=== PATIENT | male | born 1950 | race Asian ===

== ENCOUNTER 2017-03-19 18:51 | Emergency (ER) | payer OTHER ==
--- NOTE | 2017-03-19 19:12 | PDOC ---
Rapid Medical Evaluation Chief Complaint: Blood Pressure Problem Time Seen by Provider: 03/19/17 19:12 Medical Evaluation: 03/19/17 19:13 Pt presents with complaint of : sent by Dr. afua Howe/dixon at 206/86. patient took Lopressor 25mg and lasix 40mg at 6.30pm. patient remains asymptomatic. hx htn, hypercholestremia, diabetes, cardiac stent On brief exam:VSS, LCTA I have ordered the following: no labs ordered. Pt will go to the Emergency Dept for further management
[2017-03-19 19:18] VITALS: TEMP 98.5; BMI 34.0
--- NOTE | 2017-03-19 19:31 | PDOC ---
History of Present Illness - History of Present Illness Initial Comments: 03/19/17 22:53 Mr. Watkins is a 66 yo male with pmh of HTN, DM, HLD, CKD Stage, and CAD who presents on advice of PCP as his blood pressure was 190 systolic earlier today. Mr. Watkins currently has no complaints but is worried about his BP. Patient's also expressed that his baseline Creatinine is approximately 2.5 and that they would like his kidney function checked. The patient denies chest pain, shortness of breath, headache and dizziness. Denies fever, chills, nausea, vomit, diarrhea and constipation. Denies dysuria, frequency, urgency and hematuria. Allergies: NKDA <Burt Mcdaniel - Last Filed: 03/19/17 23:55> <Joshua Garcia - Last Filed: 03/20/17 01:27> - General Chief Complaint: Blood Pressure Problem Stated Complaint: BLOOD PRESSURE Time Seen by Provider: 03/19/17 19:12 Past History - Past Medical History COPD: No HTN: Yes - Suicide/Smoking/Psychosocial Hx Smoking History: Never smoked Information on smoking cessation initiated: No Hx Alcohol Use: No Drug/Substance Use Hx: No <Burt Mcdaniel - Last Filed: 03/19/17 23:55> <Joshua Garcia - Last Filed: 03/20/17 01:27> - Past Medical History Allergies/Adverse Reactions: Allergies Allergy/AdvReac Type Severity Reaction Status Date / Time No Known Allergies Allergy Verified 03/19/17 21:19 Home Medications: Ambulatory Orders Atorvastatin Ca [Lipitor] 20 mg PO DAILY 03/19/17 Famotidine [Pepcid -] 20 mg PO DAILY 03/19/17 Furosemide [Lasix] 80 mg PO AM 03/19/17 Insulin Degludec [Tresiba Flextouch U-100] 60 unit SQ HS 03/19/17 Insulin Lispro [Humalog] 0 unit SQ ACHS 03/19/17 Metoprolol Tartrate [Lopressor] 50 mg PO DAILY 03/19/17 Nifedipine ER [Procardia Xl -] 60 mg PO DAILY 03/19/17 Telmisartan/Hydrochlorothiazid [Telmisartan-Hctz 80-25 mg Tab] 1 each PO AM Review of Systems - Review of Systems Comments:: 03/19/17 22:56 GENERAL/CONSTITUTIONAL: No fever or chills. No weakness. HEAD, EYES, EARS, NOSE AND THROAT: No change in vision. No ear pain or discharge. No sore throat. CARDIOVASCULAR: No chest pain or shortness of breath RESPIRATORY: No cough, wheezing, or hemoptysis. GASTROINTESTINAL: No nausea, vomiting, diarrhea or constipation. GENITOURINARY: No dysuria, frequency, or change in urination. MUSCULOSKELETAL: No joint or muscle swelling or pain. No neck or back pain. SKIN: No rash NEUROLOGIC: No headache, vertigo, loss of consciousness, or change in strength/ sensation. ENDOCRINE: No increased thirst. No abnormal weight change HEMATOLOGIC/LYMPHATIC: No anemia, easy bleeding, or history of blood clots. ALLERGIC/IMMUNOLOGIC: No hives or skin allergy. <Burt Mcdaniel - Last Filed: 03/19/17 23:55> *Physical Exam - Vital Signs Last Vital Signs Temp Pulse Resp BP Pulse Ox 98.5 F 91 H 18 202/90 98 03/19/17 19:13 03/19/17 19:13 03/19/17 19:13 03/19/17 19:13 03/19/17 19:13 - Physical Exam Comments: 03/19/17 22:56 GENERAL: Awake, alert, and fully oriented, in no acute distress HEAD: No signs of trauma, normocephalic, atraumatic EYES: PERRLA, EOMI, sclera anicteric, conjunctiva clear ENT: Auricles normal inspection, hearing grossly normal, nares patent, oropharynx clear without exudates. Moist mucosa NECK: Normal ROM, supple, no lymphadenopathy, JVD, or masses LUNGS: No distress, speaks full sentences, clear to auscultation bilaterally HEART: Regular rate and rhythm, normal S1 and S2, no murmurs, rubs or gallops, peripheral pulses normal and equal bilaterally. ABDOMEN: Soft, nontender, normoactive bowel sounds. No guarding, no rebound. No masses EXTREMITIES: Normal inspection, Normal range of motion, no edema. No clubbing or cyanosis. NEUROLOGICAL: Cranial nerves II through XII grossly intact. Normal speech, normal gait, no focal sensorimotor deficits SKIN: Warm, Dry, normal turgor, no rashes or lesions noted. <Burt Mcdaniel - Last Filed: 03/19/17 23:55> - Vital Signs Last Vital Signs Temp Pulse Resp BP Pulse Ox 98.5 F 72 18 137/79 100 03/19/17 19:13 03/19/17 22:52 03/19/17 22:52 03/20/17 01:24 03/19/17 22:52 <Joshua Garcia - Last Filed: 03/20/17 01:27> ED Treatment Course - LABORATORY CBC & Chemistry Diagram: 03/19/17 21:30 03/19/17 21:30 <Burt Mcdaniel - Last Filed: 03/19/17 23:55> - LABORATORY CBC & Chemistry Diagram: 03/19/17 21:30 03/19/17 21:30 - ADDITIONAL ORDERS Additional order review: Laboratory Results 03/19/17 21:30 Sodium 134 L Potassium 3.7 Chloride 97 L Carbon Dioxide 30 Anion Gap 7 L BUN 31 H Creatinine 2.5 H Creat Clearance w eGFR 25.89 Random Glucose 239 H Calcium 8.4 L Total Bilirubin 0.4 AST 28 ALT 39 Alkaline Phosphatase 131 H Creatine Kinase 206 Creatine Kinase Index 0.7 CK-MB (CK-2) 1.600 Troponin I 0.04 Total Protein 6.9 Albumin 3.2 L 03/19/17 21:30 RBC 4.31 MCV 87.4 MCHC 33.4 RDW 12.8 MPV 7.3 L Neutrophils % 69.3 Lymphocytes % 17.7 Monocytes % 10.1 Eosinophils % 2.3 Basophils % 0.6 - Medications Given in the ED: ED Medications Discontinued Medications Generic Name Dose Route Start Last Admin Trade Name Sharon PRN Reason Stop Dose Admin Labetalol HCl 20 mg 03/19/17 23:02 03/19/17 23:16 Normodyne Injection - IVPUSH 03/19/17 23:03 20 mg ONCE ONE Administration Labetalol HCl 100 mg 03/19/17 23:20 03/19/17 23:34 Normodyne - PO 03/19/17 23:21 100 mg ONCE ONE Administration Metoprolol Tartrate 25 mg 03/19/17 21:16 03/19/17 21:37 Lopressor - PO 03/19/17 21:17 25 mg ONCE ONE Administration <Joshua Garcia - Last Filed: 03/20/17 01:27> Medical Decision Making - Medical Decision Making 03/19/17 23:00 Unable to bring down patient's BP despite patient taking extra 40 hydralazine and 25 metoprolol per PCP's recommendations and an additional 25 metoprolol in ED. BP had initially dropped to 170's systolic but has now risen to [address] Agarwal (PCP) regarding beginning IV medications / admission for cardiology workup. Stefano agrees and would like pt admitted under hospitalist. Will comply. 03/19/17 23:24 Discussed patient with hospitalist. Given asymptomatic nature of hypertension, hospitalist would like ED obs short stay for now with admission if no change after 8 hours or if he becomes symptomatic. Will enter ED short stay. 03/19/17 23:55 Patient signed out to Dr. Washington. <Burt Mcdaniel - Last Filed: 03/19/17 23:55> *DC/Admit/Observation/Transfer - Discharge Dispostion Admit: Yes <Burt Mcdaniel - Last Filed: 03/19/17 23:55> <Joshua Garcia - Last Filed: 03/20/17 01:27> Diagnosis at time of Disposition: Hypertension Qualifiers: Hypertension type: unspecified Qualified Code(s): I10 - Essential (primary) hypertension - Discharge Dispostion Disposition: HOME - Referrals Referrals: Evangelista Agarwal MD [Primary Care Provider] - - Patient Instructions Printed Discharge Instructions: DI for High Blood Pressure, How to Monitor Your Blood Pressure at Home Additional Instructions: You must follow up with Dr. Agarwal tomorrow to have your blood pressure medications adjusted. Uncontrolled blood pressure can lead to severe heart disease, disability, or even . You were given an additional dose of metoprolol 25mg, as well as labetalol 100mg in the ER tonight, which caused your blood pressure to return to normal. If you experience chest pain, shortness of breath, headache, dizziness, or any other concerning symptoms, return to the ER immediately.
[2017-03-19] MEDS ORDERED: METOPROLOL TARTRATE 25 MG TABLET (FP) PO ONE (21:16)
[2017-03-19] MEDS ORDERED: METOPROLOL TARTRATE 25 MG TABLET (FP) ONE (21:33)
--- NOTE | 2017-03-19 21:33 | PDOC ---
Attending Attestation - Resident Resident Name: Burt Mcdaniel - ED Attending Attestation I have performed the following: I have examined & evaluated the patient, The case was reviewed & discussed with the resident, I agree w/resident's findings & plan, Exceptions are as noted - HPI HPI: 03/19/17 21:28 The patient is a 66 year old male, with a significant past medical history of hypertension, hyperlipidemia, diabetes, CAD, and CKD, who presents to the emergency department with elevated BP. Pt states that he has not checked it in a few days and when he went to his appointment at ENT clinic, his BP was found to be 199. Pt reports compliance with his meds, which include lasix 80mg, metoprolol 50mg, nifedipine 90mg, and telmasartan. He denies any complaints at this time. No CP/SOB/URBAN/N/V/abdominal pain. Pt states that he called his PMD, who instructed him to take an extra 25mg of metoprolol and lasix 40mg, which he took at 6:30. Pt states his baseline BP is around 160 systolic. Has not had any recent changes in his meds. - Physicial Exam PE: 03/19/17 21:32 "GENERAL: Awake, alert, and fully oriented, in no acute distress HEAD: No signs of trauma EYES: PERRLA, EOMI, sclera anicteric, conjunctiva clear ENT: Auricles normal inspection, hearing grossly normal, nares patent, oropharynx clear without exudates. Moist mucosa NECK: Nontender, no stepoffs, Normal ROM, supple, no lymphadenopathy, JVD, or masses LUNGS: Breath sounds equal, clear to auscultation bilaterally. No wheezes, and no crackles HEART: Regular rate and rhythm, normal S1 and S2, no murmurs, rubs or gallops ABDOMEN: Soft, nontender, normoactive bowel sounds. No guarding, no rebound. No masses EXTREMITIES: Normal range of motion, no edema. No clubbing or cyanosis. No cords, erythema, or tenderness NEUROLOGICAL: Cranial nerves II through XII intact. 5/5 strength and sensation in all extremities, Normal speech, normal gait SKIN: Warm, Dry, normal turgor, no rashes or lesions noted. " - Medical Decision Making 03/19/17 21:37 66 M with elevated BP. Pt with no other complaints. After additional metoprolol 25mg and lasix 40mg, pt's BP has improved from 200 to 180 systolic. Given significant comorbidities, will check basic labs and EKG despite lack of symptoms. Will also administer additional 25mg metoprolol to complete home dose of 50mg. - CBC, CMP - EKG - Metoprolol 25mg - Reassess 03/20/17 01:24 CBC,CMP WBC 9.8 K/mm3 (4.0-10.0) 03/19/17 21:30 RBC 4.31 M/mm3 (4.00-5.60) 03/19/17 21:30 Hgb 12.6 GM/dL (11.7-16.9) 03/19/17: Hct 37.7 % (35.4-49) 03/19/17 21: MCV 87.4 fl (80-96) 03/19/17 21: MCH 29.2 pg (25.7-33.7) 03/19/17: MCHC 33.4 g/dl (32.0-35.9) 03/19/17 21:30 RDW 12.8 % (11.9-15.9) 03/19/17: Plt Count 248 K/MM3 (134-434) 03/19/17 21: MPV 7.3 fl (7.5-11.1) L 03/19/17 21: Neutrophils % 69.3 % (42.8-82.8) 03/19/17 21: Lymphocytes % 17.7 % (8-40) 03/19/17: Monocytes % 10.1 % (3.8-10.2) 03/19/17 21: Eosinophils % 2.3 % (0-4.5) 03/19/17 21: Basophils % 0.6 % (0-2.0) 03/19/17 21:30 Sodium 134 mmol/L (136-145) L 03/19/17 21:30 Potassium 3.7 mmol/L (3.5-5.1) 03/19/17 21:30 Chloride 97 mmol/L (98-107) L 03/19/17 21: Carbon Dioxide 30 mmol/L (21-32) 03/19/17 21:30 Anion Gap 7 (8-16) L 03/19/17 21:30 BUN 31 mg/dL (7-18) H 03/19/17 21:30 Creatinine 2.5 mg/dL (0.7-1.3) H 03/19/17 21:30 Creat Clearance w eGFR 25.89 (>60) 03/19/17 21:30 Random Glucose 239 mg/dL (74-106) H 03/19/17 21:30 Calcium 8.4 mg/dL (8.5-10.1) L 03/19/17 21:30 Total Bilirubin 0.4 mg/dL (0.2-1.0) 03/19/17 21:30 AST 28 U/L (15-37) 03/19/17 21:30 ALT 39 U/L (12-78) 03/19/17 21:30 Alkaline Phosphatase 131 U/L (45-117) H 03/19/17 21: Creatine Kinase 206 IU/L (39-308) 03/19/17 21:30 Creatine Kinase Index 0.7 % (0.0-5.0) 03/19/17 21:30 CK-MB (CK-2) 1.600 ng/mL (0.5-3.6) 03/19/17 21:30 Troponin I 0.04 ng/ml (0.00-0.05) 03/19/17 21:30 Total Protein 6.9 g/dl (6.4-8.2) 03/19/17 21:30 Albumin 3.2 g/dl (3.4-5.0) L 03/19/17 21:[address] Agarwal, who reports that pt's Cr is at baseline today ( 2.5). Pt with no other signs of end-organ damage. Pt given additional Labetalol 100mg PO. Repeat BP now 130s systolic. Pt continues to be asymptomatic. Pt well appearing, vitals now normal. Clinically stable for DC. Heart Score/ECG Review - ECG Impressions Comment:: 03/19/17 21:40 NSR, no RUBA/STDs, T wave flattening in V6, intervals wnl
[2017-03-19 21:35] LABS: BASOPHIL 0.6 % (0-2.0); EOSINOPHIL 2.3 % (0-4.5); MCH 29.2 pg (25.7-33.7); MCHC 33.4 g/dl (32.0-35.9); MEAN CELL VOLUME 87.4 fl (80-96); MEAN PLT VOLUME 7.3 fl (7.5-11.1); NEUTROPHILS 69.3 % (42.8-82.8); PLATELET COUNT 248 K/MM3 (134-434); RDW 12.8 % (11.9-15.9); WHITE BLOOD COUNT 9.8 K/mm3 (4.0-10.0)
[2017-03-19 22:15] LABS: ALBUMIN 3.2 g/dl (3.4-5.0); ANION GAP 7 (8-16); CALCIUM 8.4 mg/dL (8.5-10.1); CO2 30 mmol/L (21-32); CREATININE 2.5 mg/dL (0.7-1.3); GLUCOSE,RANDOM 239 mg/dL (74-106); SGOT/AST 28 U/L (15-37)
[2017-03-19 22:18] LABS: ALK PHOS 131 U/L (45-117); BILIRUBIN,TOTAL 0.4 mg/dL (0.2-1.0); CPK 206 IU/L (39-308); SGPT/ALT 39 U/L (12-78); TOT PROT 6.9 g/dl (6.4-8.2); TROPONIN I 0.04 ng/ml (0.00-0.05)
[2017-03-19 22:53] VITALS: PULSE 72
[2017-03-19] MEDS ORDERED: LABETALOL HCL 5 MG/1 ML (100MG/20 ML VIAL) IVPUSH ONE (23:02)
[2017-03-19] MEDS ORDERED: LABETALOL HCL 100 MG TABLET (FP) PO ONE (23:20)
[2017-03-19] MEDS ORDERED: LABETALOL HCL 100 MG TABLET (FP) ONE (23:32)
[2017-03-20 01:25] VITALS: BP 137/79
--- NOTE | 2017-03-20 10:05 | EKG ---
Test Reason : Blood Pressure : / mmHG Vent. Rate : 080 BPM Atrial Rate : 080 BPM P-R Int : 192 ms QRS Dur : 116 ms QT Int : 368 ms P-R-T Axes : 038 -47 077 degrees QTc Int : 424 ms NORMAL SINUS RHYTHM LEFT ANTERIOR FASCICULAR BLOCK NONSPECIFIC T WAVE ABNORMALITY ABNORMAL ECG NO PREVIOUS ECGS AVAILABLE Confirmed by ETHAN ARTEAGA MD ([id number]) on 03/20/2017 10:05:29 AM Referred By: Confirmed By:ETHAN ARTEAGA MD
== END 2017-03-20 01:45 | disposition home or self-care (01) ==
LOC: JER 18:51
PROC: 3E033GC Introduction of Other Therapeutic Substance into Peripheral Vein, Percutaneous Approach (ICD-10-PCS; principal; 2017-03-19)
DX: I25.10 Atherosclerotic heart disease of native coronary artery without angina pectoris (principal); I13.10 Hypertensive heart and chronic kidney disease without heart failure, with stage 1 through stage 4 chronic kidney disease, or unspecified chronic kidney disease; N18.9 Chronic kidney disease, unspecified; Z95.5 Presence of coronary angioplasty implant and graft; E11.9 Type 2 diabetes mellitus without complications; Z79.4 Long term (current) use of insulin
CPT/HCPCS: 36415; 80053; 82550; 82553; 84484; 85025; 93005; 93010; 99283-25

== ENCOUNTER 2022-12-19 14:45 | Inpatient (IN) | payer OTHER ==
[2022-12-19 17:29] LABS: BASO % 0.9 % (0-2.0); EOS % 5.2 % (0-4.5); HEMATOCRIT 36.5 % (35.4-49); LYMPH % 9.4 % (8-40); MCHC 32.8 g/dl (32.0-35.9); MEAN CELL VOLUME 88.4 fl (80-96); MEAN PLT VOLUME 7.6 fl (7.5-11.1); MONO % 6.3 % (3.8-10.2); NEUT % 78.2 % (42.8-82.8); PLATELET COUNT 269 10^3/uL (134-434); RBC 4.13 M/mm3 (4.00-5.60); VENOUS BASE EXCESS -4.4 mmol/L (-2-2); VENOUS O2 SATURATION 71.5 % (70-80); VENOUS PCO2 49.1 mmHg (38-52); VENOUS PH 7.281 (7.310-7.410); WHITE BLOOD COUNT 10.9 K/mm3 (4.0-10.0)
[2022-12-19 17:35] LABS: INR 0.96 (0.83-1.09); PROTHROMBIN TIME (PATIENT) 11.1 SEC (9.7-13.0)
[2022-12-19 17:38] LABS: ACTIVATED PTT 33.2 SECONDS (25.2-36.5)
[2022-12-19 17:52] LABS: CHLORIDE 107 mmol/L (98-107); SODIUM 136 mmol/L (136-145)
[2022-12-19 17:55] LABS: ALBUMIN 2.7 g/dl (3.4-5.0); BLOOD UREA NITROGEN 33.2 mg/dL (7-18); CO2 25 mmol/L (21-32); GLUCOSE,RANDOM 99 mg/dL (74-106)
[2022-12-19 17:56] LABS: EPI CELLS 8 /uL (0-25.1); HYALINE CASTS 0 /uL (0-3.1); URINE APPEARANCE CLEAR; URINE BACTERIA 3 /uL (0-1359); URINE BILIRUBIN NEGATIVE (NEGATIVE); URINE COLOR YELLOW; URINE GLUCOSE (UA) NEGATIVE (NEGATIVE); URINE KETONE NEGATIVE (NEGATIVE); URINE LEUK ESTERASE NEGATIVE (NEGATIVE); URINE NITRITE NEGATIVE (NEGATIVE); URINE PROTEIN 3+ (NEGATIVE); URINE RBC 10 /uL (0-23.9); URINE UROBILINOGEN 0.2 mg/dL (0.2-1.0); URINE WBC 3 /uL (0-25.8)
[2022-12-19 17:58] LABS: SGOT/AST 57 U/L (15-37); SGPT/ALT 22 U/L (13-61)
[2022-12-19 17:59] LABS: BILIRUBIN,TOTAL 0.3 mg/dL (0.2-1); TOT PROT 6.8 g/dl (6.4-8.2)
[2022-12-19 18:01] LABS: ALK PHOS 182 U/L (45-117)
[2022-12-19 18:03] LABS: N-TERMINAL BNP 5762.8 pg/ml (5-125)
[2022-12-19 18:05] LABS: ANION GAP 5 MMOL/L (8-16); CALCIUM 8.2 mg/dL (8.5-10.1); POTASSIUM 6.2 mmol/L (3.5-5.1)
[2022-12-19] MEDS ORDERED: FUROSEMIDE 40 MG/4 ML INJECTABLE VIAL IVPUSH ONE (18:42)
[2022-12-19] MEDS ORDERED: FUROSEMIDE 40 MG/4 ML INJECTABLE VIAL ONE (18:53)
[2022-12-19 19:20] LABS: POTASSIUM 4.4 mmol/L (3.5-5.1)
[2022-12-19 19:24] LABS: BLOOD UREA NITROGEN 33.4 mg/dL (7-18); MAGNESIUM 1.9 mg/dL (1.8-2.4)
[2022-12-19 19:27] LABS: CREATININE 2.9 mg/dL (0.55-1.3)
[2022-12-19 19:37] LABS: CALCIUM 8.1 mg/dL (8.5-10.1)
[2022-12-19] MEDS ORDERED: hydrALAZINE HCL 20 MG/ML VIAL IVPUSH ONE (22:04)
[2022-12-19] MEDS ORDERED: HEPARIN NA (PORCINE) 5,000 UNITS/ML 1ML VIAL ONE (22:10)
[2022-12-19] MEDS ORDERED: hydrALAZINE HCL 20 MG/ML VIAL ONE (22:10)
[2022-12-19] MEDS: INSULIN SLIDING SCALE (NOVOLOG) 1 VIAL SQ SCH (22:21)
[2022-12-19] MEDS ORDERED: DEXTROSE 50%-WATER 25 GM/50 ML DISP.SYRIN ONE (22:21)
[2022-12-19] MEDS ORDERED: DEXTROSE 50%-WATER - 25 GM/50 ML VIAL IVPUSH ONE (22:23)
[2022-12-19] MEDS: HEPARIN NA (PORCINE) 5,000 UNITS/ML 1ML VIAL SQ SCH (22:32)
[2022-12-20] MEDS ORDERED: hydrALAZINE HCL 20 MG/ML VIAL IVPUSH ONE ×2 (00:30→22:29)
[2022-12-20] MEDS ORDERED: NIFEdipine E.R 60 MG TABLET PO ONE (02:42)
[2022-12-20] MEDS ORDERED: FUROSEMIDE 40 MG/4 ML INJECTABLE VIAL IVPUSH ONE (03:00)
[2022-12-20] MEDS: HEPARIN NA (PORCINE) 5,000 UNITS/ML 1ML VIAL SQ SCH ×3 (06:44→22:55)
[2022-12-20 07:17] LABS: HEMATOCRIT 37.4 % (35.4-49); HEMOGLOBIN 11.6 GM/dL (11.7-16.9); MCH 28.4 pg (25.7-33.7); MCHC 31.1 g/dl (32.0-35.9); MEAN CELL VOLUME 91.4 fl (80-96); PLATELET COUNT 246 10^3/uL (134-434); RBC 4.09 M/mm3 (4.00-5.60); RDW 13.9 % (11.9-15.9); WHITE BLOOD COUNT 9.6 K/mm3 (4.0-10.0)
[2022-12-20 07:39] LABS: POTASSIUM 4.4 mmol/L (3.5-5.1)
[2022-12-20 07:48] LABS: ALBUMIN 2.5 g/dl (3.4-5.0); BLOOD UREA NITROGEN 37.7 mg/dL (7-18); CALCIUM 8.2 mg/dL (8.5-10.1); MAGNESIUM 1.9 mg/dL (1.8-2.4)
[2022-12-20 07:51] LABS: CREATININE 3.1 mg/dL (0.55-1.3); PHOSPHOROUS 5.3 mg/dL (2.5-4.9)
[2022-12-20 07:52] LABS: BILIRUBIN,TOTAL 0.2 mg/dL (0.2-1); TOT PROT 5.9 g/dl (6.4-8.2)
[2022-12-20] MEDS: INSULIN SLIDING SCALE (NOVOLOG) 1 VIAL SQ SCH ×4 (08:00→22:55)
[2022-12-20] MEDS ORDERED: INSULIN (NOVOLOG) ASPART 100 UNITS/ML 10ML VIAL ONE ×2 (08:18→16:15)
[2022-12-20] MEDS: ASPIRIN 81 MG CHEWABLE TABLETS PO SCH (09:59)
[2022-12-20] MEDS ORDERED: NIFEdipine E.R 60 MG TABLET PO SCH (10:00)
[2022-12-20] MEDS ORDERED: LOSARTAN POTASSIUM 25 MG TABLET PO SCH (11:15)
[2022-12-20] MEDS ORDERED: NIFEdipine E.R. 30 MG TABLET PO ONE ×2 (13:15→15:30)
[2022-12-20] MEDS ORDERED: LORazepam 0.5 MG TABLET PO PRN (14:43)
[2022-12-20] MEDS ORDERED: INSULIN (LEVEMIR) 100 UNITS/ML UNITS SQ SCH (22:00)
[2022-12-20] MEDS: ATORVASTATIN CA 20 MG TABLET (FP) PO SCH (22:55)
[2022-12-20] MEDS: DONEPEZIL HCL 5 MG TABLET (FP) PO SCH (22:55)
[2022-12-21] MEDS: INSULIN SLIDING SCALE (NOVOLOG) 1 VIAL SQ SCH ×4 (06:04→22:26)
[2022-12-21] MEDS: HEPARIN NA (PORCINE) 5,000 UNITS/ML 1ML VIAL SQ SCH ×3 (07:09→22:28)
[2022-12-21] MEDS: INSULIN (LEVEMIR) 100 UNITS/ML UNITS SQ SCH (07:09)
[2022-12-21 08:14] LABS: HEMATOCRIT 35.1 % (35.4-49); MCH 28.3 pg (25.7-33.7); MCHC 31.3 g/dl (32.0-35.9); MEAN CELL VOLUME 90.3 fl (80-96); MEAN PLT VOLUME 8.3 fl (7.5-11.1); PLATELET COUNT 257 10^3/uL (134-434); RBC 3.89 M/mm3 (4.00-5.60); RDW 13.8 % (11.9-15.9); WHITE BLOOD COUNT 10.1 K/mm3 (4.0-10.0)
[2022-12-21 08:21] LABS: POTASSIUM 4.6 mmol/L (3.5-5.1)
[2022-12-21 08:25] LABS: BLOOD UREA NITROGEN 46.5 mg/dL (7-18); MAGNESIUM 2.1 mg/dL (1.8-2.4)
[2022-12-21 08:26] LABS: ALBUMIN 2.4 g/dl (3.4-5.0)
[2022-12-21 08:28] LABS: CREATININE 3.7 mg/dL (0.55-1.3); PHOSPHOROUS 4.8 mg/dL (2.5-4.9)
[2022-12-21 08:30] LABS: BILIRUBIN,TOTAL 0.3 mg/dL (0.2-1); TOT PROT 5.6 g/dl (6.4-8.2)
[2022-12-21] MEDS ORDERED: FUROSEMIDE 40 MG/4 ML INJECTABLE VIAL IVPUSH SCH ×2 (10:00)
[2022-12-21] MEDS: NIFEdipine E.R. 90 MG TABLET PO SCH (10:37)
[2022-12-21] MEDS: ASPIRIN 81 MG CHEWABLE TABLETS PO SCH (10:37)
[2022-12-21] MEDS: NITROGLYCERIN 2% OINTMENT - 1GM PACKET TD SCH ×3 (12:08→23:21)
[2022-12-21 13:12] VITALS: BMI 38.4
[2022-12-21] MEDS: FUROSEMIDE 40 MG/4 ML INJECTABLE VIAL IVPUSH SCH (14:02)
[2022-12-21] MEDS ORDERED: INSULIN (NOVOLOG) ASPART 100 UNITS/ML 10ML VIAL ONE (17:18)
[2022-12-21] MEDS: DONEPEZIL HCL 5 MG TABLET (FP) PO SCH (22:28)
[2022-12-21] MEDS: ATORVASTATIN CA 20 MG TABLET (FP) PO SCH (22:28)
[2022-12-22] MEDS: INSULIN SLIDING SCALE (NOVOLOG) 1 VIAL SQ SCH ×4 (06:18→21:29)
[2022-12-22] MEDS: INSULIN (LEVEMIR) 100 UNITS/ML UNITS SQ SCH (06:24)
[2022-12-22] MEDS: HEPARIN NA (PORCINE) 5,000 UNITS/ML 1ML VIAL SQ SCH ×3 (06:24→21:17)
[2022-12-22] MEDS: NITROGLYCERIN 2% OINTMENT - 1GM PACKET TD SCH ×3 (06:24→17:21)
[2022-12-22 08:17] LABS: POTASSIUM 4.5 mmol/L (3.5-5.1)
[2022-12-22 08:32] LABS: ALBUMIN 2.4 g/dl (3.4-5.0); CALCIUM 8.3 mg/dL (8.5-10.1); MAGNESIUM 2.1 mg/dL (1.8-2.4)
[2022-12-22 08:33] LABS: BLOOD UREA NITROGEN 51.3 mg/dL (7-18)
[2022-12-22 08:35] LABS: CREATININE 3.8 mg/dL (0.55-1.3)
[2022-12-22 08:36] LABS: PHOSPHOROUS 4.7 mg/dL (2.5-4.9)
[2022-12-22 08:37] LABS: BILIRUBIN,TOTAL 0.4 mg/dL (0.2-1); HEMOGLOBIN 10.4 GM/dL (11.7-16.9); MCH 28.4 pg (25.7-33.7); MCHC 31.5 g/dl (32.0-35.9); MEAN CELL VOLUME 90.1 fl (80-96); MEAN PLT VOLUME 8.3 fl (7.5-11.1); PLATELET COUNT 245 10^3/uL (134-434); RBC 3.66 M/mm3 (4.00-5.60); RDW 13.8 % (11.9-15.9); TOT PROT 5.4 g/dl (6.4-8.2); WHITE BLOOD COUNT 8.7 K/mm3 (4.0-10.0)
[2022-12-22] MEDS: ASPIRIN 81 MG CHEWABLE TABLETS PO SCH (09:05)
[2022-12-22] MEDS: FUROSEMIDE 40 MG/4 ML INJECTABLE VIAL IVPUSH SCH (09:05)
[2022-12-22] MEDS: NIFEdipine E.R. 90 MG TABLET PO SCH (09:06)
[2022-12-22] MEDS: CARVEDILOL 12.5 MG TABLET (FP) PO SCH ×2 (13:46→21:17)
[2022-12-22] MEDS: EZETIMIBE 10 MG TABLET (FP) PO SCH (17:20)
[2022-12-22] MEDS: INSULIN (NOVOLOG) ASPART 100 UNITS/ML 10ML VIAL SQ SCH (17:20)
[2022-12-22] MEDS ORDERED: DOCUSATE SODIUM 100 MG CAPSULE (FP) PO PRN (18:45)
[2022-12-22] MEDS: DONEPEZIL HCL 5 MG TABLET (FP) PO SCH (21:17)
[2022-12-22] MEDS: POLYETHYLENE GLYCOL (HEALTHYLAX) 3350 17 GM PACKET PO SCH (21:17)
[2022-12-22] MEDS: ATORVASTATIN CA 20 MG TABLET (FP) PO SCH (21:21)
[2022-12-22] MEDS ORDERED: INSULIN (NOVOLOG) ASPART 100 UNITS/ML 10ML VIAL ONE (21:28)
[2022-12-23] MEDS: NITROGLYCERIN 2% OINTMENT - 1GM PACKET TD SCH ×5 (00:16→23:30)
[2022-12-23] MEDS: HEPARIN NA (PORCINE) 5,000 UNITS/ML 1ML VIAL SQ SCH ×3 (06:36→21:52)
[2022-12-23] MEDS: INSULIN (LEVEMIR) 100 UNITS/ML UNITS SQ SCH (06:44)
[2022-12-23] MEDS: INSULIN (NOVOLOG) ASPART 100 UNITS/ML 10ML VIAL SQ SCH ×3 (06:44→17:05)
[2022-12-23] MEDS: INSULIN SLIDING SCALE (NOVOLOG) 1 VIAL SQ SCH ×4 (06:45→21:53)
[2022-12-23 08:04] LABS: POTASSIUM 4.7 mmol/L (3.5-5.1)
[2022-12-23 08:18] LABS: ALBUMIN 2.5 g/dl (3.4-5.0); MAGNESIUM 2.3 mg/dL (1.8-2.4)
[2022-12-23 08:19] LABS: BLOOD UREA NITROGEN 57.8 mg/dL (7-18)
[2022-12-23 08:21] LABS: CREATININE 4.2 mg/dL (0.55-1.3); PHOSPHOROUS 5.1 mg/dL (2.5-4.9)
[2022-12-23 08:22] LABS: BILIRUBIN,TOTAL 0.2 mg/dL (0.2-1); TOT PROT 5.4 g/dl (6.4-8.2)
[2022-12-23 08:23] LABS: HEMATOCRIT 32.2 % (35.4-49); HEMOGLOBIN 10.2 GM/dL (11.7-16.9); MCH 28.3 pg (25.7-33.7); MCHC 31.5 g/dl (32.0-35.9); MEAN CELL VOLUME 89.7 fl (80-96); MEAN PLT VOLUME 8.5 fl (7.5-11.1); PLATELET COUNT 232 10^3/uL (134-434); RBC 3.59 M/mm3 (4.00-5.60); RDW 13.5 % (11.9-15.9); WHITE BLOOD COUNT 8.2 K/mm3 (4.0-10.0)
[2022-12-23] MEDS: FUROSEMIDE 40 MG/4 ML INJECTABLE VIAL IVPUSH SCH (11:33)
[2022-12-23] MEDS: CARVEDILOL 12.5 MG TABLET (FP) PO SCH ×2 (11:33→21:52)
[2022-12-23] MEDS: POLYETHYLENE GLYCOL (HEALTHYLAX) 3350 17 GM PACKET PO SCH ×2 (11:33→21:52)
[2022-12-23] MEDS: ASPIRIN 81 MG CHEWABLE TABLETS PO SCH (11:33)
[2022-12-23] MEDS: NIFEdipine E.R 60 MG TABLET PO SCH ×2 (11:33→21:52)
[2022-12-23] MEDS: EZETIMIBE 10 MG TABLET (FP) PO SCH (11:34)
[2022-12-23] MEDS: DONEPEZIL HCL 5 MG TABLET (FP) PO SCH (21:52)
[2022-12-23] MEDS: ATORVASTATIN CA 20 MG TABLET (FP) PO SCH (21:52)
[2022-12-24] MEDS: HEPARIN NA (PORCINE) 5,000 UNITS/ML 1ML VIAL SQ SCH ×3 (05:53→21:08)
[2022-12-24] MEDS: NITROGLYCERIN 2% OINTMENT - 1GM PACKET TD SCH ×3 (05:53→17:44)
[2022-12-24] MEDS: INSULIN (LEVEMIR) 100 UNITS/ML UNITS SQ SCH (06:03)
[2022-12-24] MEDS: INSULIN SLIDING SCALE (NOVOLOG) 1 VIAL SQ SCH ×4 (06:03→21:55)
[2022-12-24] MEDS: INSULIN (NOVOLOG) ASPART 100 UNITS/ML 10ML VIAL SQ SCH ×3 (06:03→16:46)
[2022-12-24 07:51] LABS: HEMATOCRIT 32.2 % (35.4-49); HEMOGLOBIN 10.3 GM/dL (11.7-16.9); MCH 28.7 pg (25.7-33.7); MCHC 31.8 g/dl (32.0-35.9); MEAN CELL VOLUME 90.1 fl (80-96); MEAN PLT VOLUME 8.5 fl (7.5-11.1); PLATELET COUNT 227 10^3/uL (134-434); RBC 3.57 M/mm3 (4.00-5.60); RDW 13.6 % (11.9-15.9)
[2022-12-24 08:07] LABS: POTASSIUM 4.8 mmol/L (3.5-5.1)
[2022-12-24 08:09] LABS: ALBUMIN 2.5 g/dl (3.4-5.0)
[2022-12-24 08:10] LABS: BLOOD UREA NITROGEN 64.5 mg/dL (7-18); MAGNESIUM 2.2 mg/dL (1.8-2.4)
[2022-12-24 08:12] LABS: CREATININE 4.3 mg/dL (0.55-1.3); PHOSPHOROUS 5.6 mg/dL (2.5-4.9)
[2022-12-24 08:14] LABS: BILIRUBIN,TOTAL 0.3 mg/dL (0.2-1); TOT PROT 5.6 g/dl (6.4-8.2)
[2022-12-24] MEDS: NIFEdipine E.R 60 MG TABLET PO SCH ×2 (09:48→21:07)
[2022-12-24] MEDS: POLYETHYLENE GLYCOL (HEALTHYLAX) 3350 17 GM PACKET PO SCH ×3 (09:48→21:09)
[2022-12-24] MEDS: CARVEDILOL 12.5 MG TABLET (FP) PO SCH ×2 (09:48→21:07)
[2022-12-24] MEDS: ASPIRIN 81 MG CHEWABLE TABLETS PO SCH (09:48)
[2022-12-24] MEDS: EZETIMIBE 10 MG TABLET (FP) PO SCH (09:48)
[2022-12-24] MEDS ORDERED: TAMSULOSIN HCL 0.4 MG CAP PO SCH (11:05)
[2022-12-24] MEDS: DONEPEZIL HCL 5 MG TABLET (FP) PO SCH (21:07)
[2022-12-24] MEDS: ATORVASTATIN CA 20 MG TABLET (FP) PO SCH (21:11)
[2022-12-24] MEDS ORDERED: INSULIN (NOVOLOG) ASPART 100 UNITS/ML 10ML VIAL ONE (21:54)
[2022-12-24] MEDS: BISACODYL 10 MG SUPP.RECT PR PRN (22:30)
[2022-12-25] MEDS: NITROGLYCERIN 2% OINTMENT - 1GM PACKET TD SCH ×4 (00:52→17:59)
[2022-12-25] MEDS ORDERED: INSULIN (NOVOLOG) ASPART 100 UNITS/ML 10ML VIAL ONE ×2 (06:25→21:37)
[2022-12-25] MEDS: POLYETHYLENE GLYCOL (HEALTHYLAX) 3350 17 GM PACKET PO SCH ×3 (06:30→21:31)
[2022-12-25] MEDS: INSULIN SLIDING SCALE (NOVOLOG) 1 VIAL SQ SCH ×4 (06:32→21:38)
[2022-12-25] MEDS: INSULIN (LEVEMIR) 100 UNITS/ML UNITS SQ SCH (06:32)
[2022-12-25] MEDS: INSULIN (NOVOLOG) ASPART 100 UNITS/ML 10ML VIAL SQ SCH ×3 (06:32→17:58)
[2022-12-25] MEDS: HEPARIN NA (PORCINE) 5,000 UNITS/ML 1ML VIAL SQ SCH ×3 (06:33→22:07)
[2022-12-25 07:57] LABS: HEMATOCRIT 30.8 % (35.4-49); HEMOGLOBIN 9.7 GM/dL (11.7-16.9); MCH 28.6 pg (25.7-33.7); MCHC 31.6 g/dl (32.0-35.9); MEAN CELL VOLUME 90.5 fl (80-96); MEAN PLT VOLUME 8.6 fl (7.5-11.1); PLATELET COUNT 203 10^3/uL (134-434); RDW 13.2 % (11.9-15.9); WHITE BLOOD COUNT 6.6 K/mm3 (4.0-10.0)
[2022-12-25 08:29] LABS: POTASSIUM 5.1 mmol/L (3.5-5.1)
[2022-12-25 08:30] LABS: CALCIUM 8.1 mg/dL (8.5-10.1)
[2022-12-25 08:31] LABS: ALBUMIN 2.5 g/dl (3.4-5.0); MAGNESIUM 2.5 mg/dL (1.8-2.4)
[2022-12-25 08:34] LABS: CREATININE 4.2 mg/dL (0.55-1.3); PHOSPHOROUS 5.2 mg/dL (2.5-4.9)
[2022-12-25 08:36] LABS: BILIRUBIN,TOTAL 0.3 mg/dL (0.2-1); TOT PROT 5.4 g/dl (6.4-8.2)
[2022-12-25] MEDS: ASPIRIN 81 MG CHEWABLE TABLETS PO SCH (09:40)
[2022-12-25] MEDS: TAMSULOSIN HCL 0.4 MG CAP PO SCH (09:40)
[2022-12-25] MEDS: DOCUSATE SODIUM 100 MG CAPSULE (FP) PO SCH (09:40)
[2022-12-25] MEDS: EZETIMIBE 10 MG TABLET (FP) PO SCH (09:40)
[2022-12-25] MEDS: CARVEDILOL 12.5 MG TABLET (FP) PO SCH ×2 (09:41→22:07)
[2022-12-25] MEDS: BISACODYL 10 MG SUPP.RECT PR PRN (09:41)
[2022-12-25] MEDS: NIFEdipine E.R 60 MG TABLET PO SCH ×2 (09:41→21:31)
[2022-12-25] MEDS: DONEPEZIL HCL 5 MG TABLET (FP) PO SCH (21:30)
[2022-12-25] MEDS: ATORVASTATIN CA 20 MG TABLET (FP) PO SCH (21:30)
[2022-12-26] MEDS: NITROGLYCERIN 2% OINTMENT - 1GM PACKET TD SCH ×4 (00:09→17:22)
[2022-12-26] MEDS: HEPARIN NA (PORCINE) 5,000 UNITS/ML 1ML VIAL SQ SCH ×3 (06:09→22:18)
[2022-12-26] MEDS: POLYETHYLENE GLYCOL (HEALTHYLAX) 3350 17 GM PACKET PO SCH ×3 (06:12→22:18)
[2022-12-26] MEDS: INSULIN (LEVEMIR) 100 UNITS/ML UNITS SQ SCH (06:18)
[2022-12-26] MEDS: INSULIN SLIDING SCALE (NOVOLOG) 1 VIAL SQ SCH ×4 (06:21→22:18)
[2022-12-26] MEDS: INSULIN (NOVOLOG) ASPART 100 UNITS/ML 10ML VIAL SQ SCH ×3 (06:21→17:21)
[2022-12-26 08:45] LABS: HEMATOCRIT 30.9 % (35.4-49); HEMOGLOBIN 10.1 GM/dL (11.7-16.9); MCH 28.9 pg (25.7-33.7); MCHC 32.8 g/dl (32.0-35.9); MEAN CELL VOLUME 88.2 fl (80-96); MEAN PLT VOLUME 8.5 fl (7.5-11.1); PLATELET COUNT 222 10^3/uL (134-434); RBC 3.51 M/mm3 (4.00-5.60); RDW 13.2 % (11.9-15.9); WHITE BLOOD COUNT 6.8 K/mm3 (4.0-10.0)
[2022-12-26 08:56] LABS: POTASSIUM 4.8 mmol/L (3.5-5.1)
[2022-12-26 09:08] LABS: ALBUMIN 2.7 g/dl (3.4-5.0); BLOOD UREA NITROGEN 61.7 mg/dL (7-18)
[2022-12-26 09:09] LABS: MAGNESIUM 2.5 mg/dL (1.8-2.4)
[2022-12-26 09:11] LABS: PHOSPHOROUS 4.4 mg/dL (2.5-4.9)
[2022-12-26 09:13] LABS: BILIRUBIN,TOTAL 0.3 mg/dL (0.2-1); TOT PROT 5.7 g/dl (6.4-8.2)
[2022-12-26] MEDS: TAMSULOSIN HCL 0.4 MG CAP PO SCH (09:19)
[2022-12-26] MEDS: NIFEdipine E.R 60 MG TABLET PO SCH (10:14)
[2022-12-26] MEDS: DOCUSATE SODIUM 100 MG CAPSULE (FP) PO SCH (10:14)
[2022-12-26] MEDS: ASPIRIN 81 MG CHEWABLE TABLETS PO SCH (10:15)
[2022-12-26] MEDS: EZETIMIBE 10 MG TABLET (FP) PO SCH (10:15)
[2022-12-26] MEDS: CARVEDILOL 12.5 MG TABLET (FP) PO SCH ×2 (10:16→22:17)
[2022-12-26] MEDS ORDERED: hydrALAZINE HCL 20 MG/ML VIAL IVPUSH PRN (13:39)
[2022-12-26] MEDS ORDERED: hydrALAZINE HCL 10 MG TABLET PO PRN (13:52)
[2022-12-26 21:06] LABS: ANTIGLOMERULAR BASEMENT MEN.AB <0.2 units (0.0-0.9)
[2022-12-26] MEDS: ATORVASTATIN CA 20 MG TABLET (FP) PO SCH (22:17)
[2022-12-26] MEDS: DONEPEZIL HCL 5 MG TABLET (FP) PO SCH (22:18)
[2022-12-26] MEDS ORDERED: hydrALAZINE HCL 25 MG TABLET (FP) PO PRN ×2 (22:41→22:45)
[2022-12-27] MEDS: INSULIN SLIDING SCALE (NOVOLOG) 1 VIAL SQ SCH ×3 (06:15→17:48)
[2022-12-27] MEDS: INSULIN (NOVOLOG) ASPART 100 UNITS/ML 10ML VIAL SQ SCH ×3 (06:15→17:36)
[2022-12-27] MEDS: INSULIN (LEVEMIR) 100 UNITS/ML UNITS SQ SCH (06:15)
[2022-12-27] MEDS: POLYETHYLENE GLYCOL (HEALTHYLAX) 3350 17 GM PACKET PO SCH ×3 (06:16→21:45)
[2022-12-27] MEDS: NITROGLYCERIN 2% OINTMENT - 1GM PACKET TD SCH ×4 (06:16→17:49)
[2022-12-27] MEDS: HEPARIN NA (PORCINE) 5,000 UNITS/ML 1ML VIAL SQ SCH ×3 (06:16→21:37)
[2022-12-27 09:18] LABS: CHLORIDE 108 mmol/L (98-107); SODIUM 139 mmol/L (136-145)
[2022-12-27 09:25] LABS: CALCIUM 8.1 mg/dL (8.5-10.1)
[2022-12-27 09:26] LABS: ALBUMIN 2.7 g/dl (3.4-5.0); BLOOD UREA NITROGEN 59.9 mg/dL (7-18); CO2 27 mmol/L (21-32); GLUCOSE,RANDOM 160 mg/dL (74-106); MAGNESIUM 2.7 mg/dL (1.8-2.4)
[2022-12-27 09:27] LABS: HEMATOCRIT 31.7 % (35.4-49); HEMOGLOBIN 9.9 GM/dL (11.7-16.9); MCH 28.1 pg (25.7-33.7); MCHC 31.1 g/dl (32.0-35.9); MEAN CELL VOLUME 90.5 fl (80-96); MEAN PLT VOLUME 9.2 fl (7.5-11.1); PLATELET COUNT 230 10^3/uL (134-434); RBC 3.51 M/mm3 (4.00-5.60); RDW 13.1 % (11.9-15.9); WHITE BLOOD COUNT 7.3 K/mm3 (4.0-10.0)
[2022-12-27 09:28] LABS: PHOSPHOROUS 4.5 mg/dL (2.5-4.9); SGPT/ALT 28 U/L (13-61)
[2022-12-27 09:29] LABS: CREATININE 3.8 mg/dL (0.55-1.3); SGOT/AST 35 U/L (15-37)
[2022-12-27 09:30] LABS: BILIRUBIN,TOTAL 0.3 mg/dL (0.2-1); TOT PROT 5.9 g/dl (6.4-8.2)
[2022-12-27 09:31] LABS: ALK PHOS 139 U/L (45-117)
[2022-12-27 09:34] LABS: ANION GAP 4 MMOL/L (8-16); POTASSIUM 6.1 mmol/L (3.5-5.1)
[2022-12-27] MEDS ORDERED: hydrALAZINE HCL 25 MG TABLET (FP) PO SCH (10:30)
[2022-12-27] MEDS: CARVEDILOL 12.5 MG TABLET (FP) PO SCH ×2 (10:36→21:38)
[2022-12-27] MEDS: EZETIMIBE 10 MG TABLET (FP) PO SCH (10:36)
[2022-12-27] MEDS: ASPIRIN 81 MG CHEWABLE TABLETS PO SCH (10:36)
[2022-12-27] MEDS: DOCUSATE SODIUM 100 MG CAPSULE (FP) PO SCH (10:36)
[2022-12-27] MEDS: NIFEdipine E.R 60 MG TABLET PO SCH (10:36)
[2022-12-27] MEDS: TAMSULOSIN HCL 0.4 MG CAP PO SCH (10:36)
[2022-12-27] MEDS ORDERED: INSULIN (NOVOLOG) ASPART 100 UNITS/ML 10ML VIAL ONE (10:44)
[2022-12-27 13:10] LABS: BLOOD UREA NITROGEN 58.9 mg/dL (7-18); CALCIUM 7.7 mg/dL (8.5-10.1); CREATININE 3.7 mg/dL (0.55-1.3); POTASSIUM 5.2 mmol/L (3.5-5.1)
[2022-12-27] MEDS ORDERED: hydrALAZINE HCL 25 MG TABLET (FP) PO ONE (17:09)
[2022-12-27] MEDS: DONEPEZIL HCL 5 MG TABLET (FP) PO SCH (21:33)
[2022-12-27] MEDS: ATORVASTATIN CA 20 MG TABLET (FP) PO SCH (21:37)
[2022-12-27] MEDS: hydrALAZINE HCL 25 MG TABLET (FP) PO SCH (21:44)
[2022-12-28] MEDS: NITROGLYCERIN 2% OINTMENT - 1GM PACKET TD SCH ×4 (00:21→17:46)
[2022-12-28] MEDS: INSULIN SLIDING SCALE (NOVOLOG) 1 VIAL SQ SCH ×5 (00:21→21:32)
[2022-12-28] MEDS: hydrALAZINE HCL 25 MG TABLET (FP) PO SCH ×3 (05:33→21:31)
[2022-12-28] MEDS: HEPARIN NA (PORCINE) 5,000 UNITS/ML 1ML VIAL SQ SCH ×3 (05:36→21:31)
[2022-12-28] MEDS: POLYETHYLENE GLYCOL (HEALTHYLAX) 3350 17 GM PACKET PO SCH ×3 (05:38→21:32)
[2022-12-28] MEDS: INSULIN (LEVEMIR) 100 UNITS/ML UNITS SQ SCH (06:32)
[2022-12-28] MEDS: INSULIN (NOVOLOG) ASPART 100 UNITS/ML 10ML VIAL SQ SCH ×4 (06:33→16:10)
[2022-12-28 08:39] LABS: ALBUMIN 2.5 g/dl (3.4-5.0); BLOOD UREA NITROGEN 62.8 mg/dL (7-18); CALCIUM 8.2 mg/dL (8.5-10.1)
[2022-12-28 08:40] LABS: MAGNESIUM 2.6 mg/dL (1.8-2.4)
[2022-12-28 08:44] LABS: BILIRUBIN,TOTAL 0.2 mg/dL (0.2-1); CREATININE 3.6 mg/dL (0.55-1.3); PHOSPHOROUS 3.9 mg/dL (2.5-4.9); TOT PROT 5.5 g/dl (6.4-8.2)
[2022-12-28] MEDS: DOCUSATE SODIUM 100 MG CAPSULE (FP) PO SCH (09:58)
[2022-12-28] MEDS: CARVEDILOL 12.5 MG TABLET (FP) PO SCH ×2 (09:58→21:31)
[2022-12-28] MEDS: ASPIRIN 81 MG CHEWABLE TABLETS PO SCH (09:58)
[2022-12-28] MEDS: TAMSULOSIN HCL 0.4 MG CAP PO SCH (09:58)
[2022-12-28] MEDS: NIFEdipine E.R 60 MG TABLET PO SCH (12:09)
[2022-12-28] MEDS: EZETIMIBE 10 MG TABLET (FP) PO SCH (12:09)
[2022-12-28] MEDS ORDERED: NIFEdipine E.R. 30 MG TABLET PO ONE (19:30)
[2022-12-28] MEDS ORDERED: NIFEdipine E.R. 30 MG TABLET PO NR (20:03)
[2022-12-28] MEDS ORDERED: INSULIN (NOVOLOG) ASPART 100 UNITS/ML 10ML VIAL ONE (21:30)
[2022-12-28] MEDS: ATORVASTATIN CA 20 MG TABLET (FP) PO SCH (21:31)
[2022-12-28] MEDS: DONEPEZIL HCL 5 MG TABLET (FP) PO SCH (21:32)
[2022-12-29] MEDS: NITROGLYCERIN 2% OINTMENT - 1GM PACKET TD SCH ×4 (00:12→17:25)
[2022-12-29] MEDS: HEPARIN NA (PORCINE) 5,000 UNITS/ML 1ML VIAL SQ SCH ×3 (05:59→21:45)
[2022-12-29] MEDS: hydrALAZINE HCL 25 MG TABLET (FP) PO SCH (05:59)
[2022-12-29] MEDS: POLYETHYLENE GLYCOL (HEALTHYLAX) 3350 17 GM PACKET PO SCH ×3 (06:06→21:45)
[2022-12-29] MEDS: INSULIN (LEVEMIR) 100 UNITS/ML UNITS SQ SCH (06:31)
[2022-12-29] MEDS: INSULIN (NOVOLOG) ASPART 100 UNITS/ML 10ML VIAL SQ SCH ×3 (06:32→16:50)
[2022-12-29] MEDS: INSULIN SLIDING SCALE (NOVOLOG) 1 VIAL SQ SCH ×5 (06:32→21:47)
[2022-12-29 08:34] LABS: BLOOD UREA NITROGEN 58.2 mg/dL (7-18); CALCIUM 8.2 mg/dL (8.5-10.1); MAGNESIUM 2.8 mg/dL (1.8-2.4)
[2022-12-29 08:37] LABS: CREATININE 3.6 mg/dL (0.55-1.3); PHOSPHOROUS 3.9 mg/dL (2.5-4.9)
[2022-12-29] MEDS: TAMSULOSIN HCL 0.4 MG CAP PO SCH (09:02)
[2022-12-29] MEDS: ASPIRIN 81 MG CHEWABLE TABLETS PO SCH (10:07)
[2022-12-29] MEDS: CARVEDILOL 12.5 MG TABLET (FP) PO SCH ×2 (10:07→21:46)
[2022-12-29] MEDS: DOCUSATE SODIUM 100 MG CAPSULE (FP) PO SCH (10:07)
[2022-12-29] MEDS: NIFEdipine E.R 60 MG TABLET PO SCH (10:07)
[2022-12-29] MEDS: EZETIMIBE 10 MG TABLET (FP) PO SCH (10:13)
[2022-12-29] MEDS ORDERED: hydrALAZINE HCL 25 MG TABLET (FP) PO SCH (11:14)
[2022-12-29] MEDS: LOSARTAN POTASSIUM 25 MG TABLET PO SCH (12:30)
[2022-12-29] MEDS: DONEPEZIL HCL 5 MG TABLET (FP) PO SCH (21:45)
[2022-12-29] MEDS: ATORVASTATIN CA 20 MG TABLET (FP) PO SCH (21:46)
[2022-12-30] MEDS: NITROGLYCERIN 2% OINTMENT - 1GM PACKET TD SCH ×4 (00:44→17:30)
[2022-12-30] MEDS: INSULIN (LEVEMIR) 100 UNITS/ML UNITS SQ SCH (06:19)
[2022-12-30] MEDS: HEPARIN NA (PORCINE) 5,000 UNITS/ML 1ML VIAL SQ SCH ×2 (06:19→13:29)
[2022-12-30] MEDS: POLYETHYLENE GLYCOL (HEALTHYLAX) 3350 17 GM PACKET PO SCH ×2 (06:19→13:28)
[2022-12-30] MEDS: INSULIN SLIDING SCALE (NOVOLOG) 1 VIAL SQ SCH ×3 (06:20→17:29)
[2022-12-30] MEDS: INSULIN (NOVOLOG) ASPART 100 UNITS/ML 10ML VIAL SQ SCH ×3 (06:20→17:28)
[2022-12-30 07:58] LABS: POTASSIUM 4.9 mmol/L (3.5-5.1)
[2022-12-30 08:06] LABS: CALCIUM 8.6 mg/dL (8.5-10.1)
[2022-12-30 08:07] LABS: ALBUMIN 2.7 g/dl (3.4-5.0); MAGNESIUM 2.7 mg/dL (1.8-2.4)
[2022-12-30 08:10] LABS: CREATININE 3.4 mg/dL (0.55-1.3)
[2022-12-30 08:11] LABS: BILIRUBIN,TOTAL 0.8 mg/dL (0.2-1); PHOSPHOROUS 3.6 mg/dL (2.5-4.9)
[2022-12-30 08:13] LABS: TOT PROT 5.7 g/dl (6.4-8.2)
[2022-12-30 08:26] LABS: HEMATOCRIT 31.8 % (35.4-49); MCH 28.3 pg (25.7-33.7); MCHC 31.5 g/dl (32.0-35.9); PLATELET COUNT 250 10^3/uL (134-434); RBC 3.54 M/mm3 (4.00-5.60); RDW 13.4 % (11.9-15.9); WHITE BLOOD COUNT 7.5 K/mm3 (4.0-10.0)
[2022-12-30] MEDS ORDERED: ASPIRIN COATED 81 MG TABLET.EC PO SCH (10:00)
[2022-12-30 10:09] VITALS: RESP 18
[2022-12-30] MEDS: EZETIMIBE 10 MG TABLET (FP) PO SCH (10:20)
[2022-12-30] MEDS: TAMSULOSIN HCL 0.4 MG CAP PO SCH (10:21)
[2022-12-30] MEDS: DOCUSATE SODIUM 100 MG CAPSULE (FP) PO SCH (10:21)
[2022-12-30] MEDS: LOSARTAN POTASSIUM 25 MG TABLET PO SCH (10:21)
[2022-12-30] MEDS: CARVEDILOL 12.5 MG TABLET (FP) PO SCH (10:21)
[2022-12-30] MEDS: NIFEdipine E.R 60 MG TABLET PO SCH (10:35)
[2022-12-30] MEDS ORDERED: hydrALAZINE HCL 50 MG TABLET (FP) PO SCH (11:41)
[2022-12-30 13:44] VITALS: PULSE 65
[2022-12-30 18:12] VITALS: BP 148/53; TEMP 97.8
[2023-01-01 10:07] LABS: ATYPICAL pANCA <1:20 titer (Neg:<1:20); C-ANCA <1:20 titer (Neg:<1:20)
== END 2022-12-30 19:01 | disposition home or self-care (01) | DRG 291 ==
LOC: JER 14:45 → JERBED 18:43 → J4W 12-20 02:46
PROVIDERS: ADMIT Internal Medicine; ATTEND Internal Medicine
DX: I13.0 Hypertensive heart and chronic kidney disease with heart failure and stage 1 through stage 4 chronic kidney disease, or unspecified chronic kidney disease (principal); I50.33 Acute on chronic diastolic (congestive) heart failure; N18.4 Chronic kidney disease, stage 4 (severe); I24.8 Other forms of acute ischemic heart disease; I16.1 Hypertensive emergency; I45.2 Bifascicular block; N17.9 Acute kidney failure, unspecified; E11.22 Type 2 diabetes mellitus with diabetic chronic kidney disease; E78.5 Hyperlipidemia, unspecified; I25.10 Atherosclerotic heart disease of native coronary artery without angina pectoris; E66.9 Obesity, unspecified; Z68.38 Body mass index [BMI] 38.0-38.9, adult; F03.90 Unspecified dementia, unspecified severity, without behavioral disturbance, psychotic disturbance, mood disturbance, and anxiety; F10.20 Alcohol dependence, uncomplicated; E11.51 Type 2 diabetes mellitus with diabetic peripheral angiopathy without gangrene; E87.5 Hyperkalemia; E11.649 Type 2 diabetes mellitus with hypoglycemia without coma; K59.00 Constipation, unspecified; N40.0 Benign prostatic hyperplasia without lower urinary tract symptoms
CPT/HCPCS: 0241U-QW; 36415; 71045-TC-FY; 76700-TC; 76775-TC; 76856-TC; 80048; 80053; 80061; 81003; 82803; 82962; 83036; 83516; 83520; 83735; 83880; 84100; 84155; 84156; 84165; 84443; 84484; 85025; 85027; 85610; 85730; 86038; 86256; 87086; 93005; 93010; 93306-TC; 93880-TC; 93970-TC; 94010; 94660; 94761; 97116-GP; 97162-GP; 99285-25; J1644

== ENCOUNTER 2023-06-17 12:11 | Emergency (ER) | payer OTHER ==
[2023-06-17 13:03] VITALS: BMI 35.6
[2023-06-17 14:18] LABS: HEMATOCRIT 23.7 % (35.4-49); HEMOGLOBIN 7.7 GM/dL (11.7-16.9); MCH 28.8 pg (25.7-33.7); MCHC 32.5 g/dl (32.0-35.9); MEAN CELL VOLUME 88.6 fl (80-96); PLATELET COUNT 326 10^3/uL (134-434); RBC 2.68 M/mm3 (4.00-5.60); RDW 14.5 % (11.9-15.9); WHITE BLOOD COUNT 13.3 K/mm3 (4.0-10.0)
[2023-06-17 14:40] LABS: POTASSIUM 4.1 mmol/L (3.5-5.1)
[2023-06-17 14:42] LABS: CALCIUM 8.5 mg/dL (8.5-10.1)
[2023-06-17 14:43] LABS: ALBUMIN 2.6 g/dl (3.4-5.0)
[2023-06-17 14:47] LABS: BILIRUBIN,TOTAL 0.2 mg/dL (0.2-1); CREATININE 6.3 mg/dL (0.55-1.3)
[2023-06-17 14:53] LABS: TOT PROT 6.3 g/dl (6.4-8.2)
[2023-06-17 14:56] LABS: ANISOCYTOSIS 0; MACROCYTOSIS 0
[2023-06-17 16:15] LABS: RETICULOCYTES 3.19 % (0.5-1.5)
[2023-06-17 18:57] LABS: BASO % 1.1 % (0-2.0); EOS % 8.2 % (0-4.5); HEMATOCRIT 27.7 % (35.4-49); HEMOGLOBIN 8.9 GM/dL (11.7-16.9); LYMPH % 11.1 % (8-40); MCH 28.4 pg (25.7-33.7); MCHC 32.1 g/dl (32.0-35.9); MEAN CELL VOLUME 88.7 fl (80-96); MEAN PLT VOLUME 7.4 fl (7.5-11.1); NEUT % 71.6 % (42.8-82.8); PLATELET COUNT 308 10^3/uL (134-434); RBC 3.13 M/mm3 (4.00-5.60); WHITE BLOOD COUNT 11.5 K/mm3 (4.0-10.0)
[2023-06-17 19:36] LABS: EPI CELLS >36 /uL (0-25.1); HYALINE CASTS 2 /uL (0-3.1); PH,URINE 6.5 (5.0-8.0); URINE APPEARANCE CLEAR; URINE BACTERIA 16 /uL (0-1359); URINE BILIRUBIN NEGATIVE (NEGATIVE); URINE COLOR YELLOW; URINE GLUCOSE (UA) TRACE (NEGATIVE); URINE KETONE NEGATIVE (NEGATIVE); URINE LEUK ESTERASE TRACE (NEGATIVE); URINE NITRITE NEGATIVE (NEGATIVE); URINE PROTEIN 3+ (NEGATIVE); URINE RBC 190 /uL (0-23.9); URINE UROBILINOGEN 0.2 mg/dL (0.2-1.0); URINE WBC 99 /uL (0-25.8)
[2023-06-17 19:45] LABS: ANISOCYTOSIS 1+; MACROCYTOSIS 1+; OVALOCYTE 1+
[2023-06-17 19:50] LABS: PLATELET ESTIMATE ADEQUATE
[2023-06-17 20:22] LABS: URINE CRYSTALS MODERATE /hpf
[2023-06-18 01:17] VITALS: BP 110/74; PULSE 84; RESP 13; TEMP 98.5
== END 2023-06-18 04:37 | disposition home or self-care (01) ==
LOC: JER 12:11
DX: I12.0 Hypertensive chronic kidney disease with stage 5 chronic kidney disease or end stage renal disease (principal); E11.22 Type 2 diabetes mellitus with diabetic chronic kidney disease; N18.6 End stage renal disease; D63.1 Anemia in chronic kidney disease; Z99.2 Dependence on renal dialysis
CPT/HCPCS: 36415; 36430; 71045-TC-FY; 80053; 81003; 82728; 82962; 83540; 83550; 85025; 85045; 86850; 86900; 86901; 86922; 87086; 93005; 93010; 99285-25; P9058

== ENCOUNTER 2023-08-12 04:15 | Day surgery (SDC) | payer OTHER ==
[2023-08-06 16:52] VITALS: BMI 32.1
[2023-08-12] MEDS ORDERED: BUPIVACAINE HCL/PF 0.5% (5MG/ML) 10 ML VIAL ONE (07:09)
[2023-08-12] MEDS ORDERED: POVIDONE-IODINE OINTMENT 10% - 28.4 GM TUBE ONE (07:23)
[2023-08-12] MEDS ORDERED: LIDOCAINE HCL 1%, 10 MG/ML (20ML VIAL) ONE (07:23)
[2023-08-12] MEDS ORDERED: HEPARIN NA (PORCINE) 5,000 UNITS/ML 1ML VIAL ONE (07:23)
[2023-08-12] MEDS ORDERED: PAPAVERINE HCL 30 MG/1 ML 10 ML VIAL NR ONE (07:25)
[2023-08-12 07:38] LABS: CALCIUM 8.7 mg/dL (8.5-10.1)
[2023-08-12 07:39] LABS: BLOOD UREA NITROGEN 30.6 mg/dL (7-18)
[2023-08-12 07:42] LABS: CREATININE 3.1 mg/dL (0.55-1.3)
[2023-08-12] MEDS ORDERED: MIDAZOLAM HCL 2 MG/2 ML SINGLE DOSE VIAL ONE (07:59)
[2023-08-12] MEDS ORDERED: FENTANYL CITRATE/PF 50 MCG/ML VIAL ONE ×6 (07:59→10:57)
[2023-08-12] MEDS ORDERED: PROPOFOL 20 ML ONE ×3 (08:00→08:51)
[2023-08-12] MEDS: ceFAZolin SODIUM 1 GM VIAL IVPB ONE (08:20)
[2023-08-12] MEDS ORDERED: ceFAZolin SODIUM 1 GM VIAL ONE (08:24)
[2023-08-12] MEDS: LIDOCAINE HCL 1%, 10 MG/ML (50 mL VIAL) INF ONE (08:28)
[2023-08-12] MEDS ORDERED: BACITRACIN ZINC 15 GM TUBE TOPICAL OINTMENT ONE (08:32)
[2023-08-12] MEDS: POVIDONE-IODINE OINTMENT 10% - 28.4 GM TUBE TP ONE (09:42)
[2023-08-12] MEDS ORDERED: ONDANSETRON 4 MG/2 ML VIAL IVPUSH PRN (09:52)
[2023-08-12] MEDS ORDERED: LACTATED RINGERS SOLUTION 1,000 ML IV SCH (10:00)
[2023-08-12 11:42] VITALS: BP 172/50; PULSE 89; RESP 18; TEMP 97.8
== END 2023-08-12 12:56 | disposition home or self-care (01) ==
LOC: JASU-SURG 04:15
PROVIDERS: ATTEND Surgery
PROC: 03180JD Bypass Left Brachial Artery to Upper Arm Vein with Synthetic Substitute, Open Approach (ICD-10-PCS; principal; 2023-08-12 08:00)
DX: I12.0 Hypertensive chronic kidney disease with stage 5 chronic kidney disease or end stage renal disease (principal); E11.22 Type 2 diabetes mellitus with diabetic chronic kidney disease; N18.6 End stage renal disease
CPT/HCPCS: 36415; 80048; 82962; 94760; C1768; J1644

== ENCOUNTER 2024-05-09 11:44 | Observation (INO) | payer OTHER ==
[2024-05-09] MEDS ORDERED: ASPIRIN COATED 81 MG TABLET.EC ONE (12:59)
[2024-05-09] MEDS: ASPIRIN 81 MG CHEWABLE TABLETS PO ONE (13:03)
[2024-05-09 13:08] LABS: BASO % 0.6 % (0-2.0); EOS % 5.4 % (0-4.5); HEMATOCRIT 34.4 % (35.4-49); HEMOGLOBIN 11.3 GM/dL (11.7-16.9); MCH 28.2 pg (25.7-33.7); MCHC 32.9 g/dl (32.0-35.9); MEAN CELL VOLUME 85.7 fl (80-96); MEAN PLT VOLUME 7.6 fl (7.5-11.1); MONO % 7.9 % (3.8-10.2); NEUT % 75.1 % (42.8-82.8); PLATELET COUNT 155 10^3/uL (134-434); RBC 4.01 M/mm3 (4.00-5.60); RDW 15.5 % (11.9-15.9); WHITE BLOOD COUNT 7.7 K/mm3 (4.0-10.0)
[2024-05-09 13:18] LABS: POTASSIUM 4.9 mmol/L (3.5-5.1)
[2024-05-09 13:20] LABS: CALCIUM 8.3 mg/dL (8.5-10.1)
[2024-05-09 13:21] LABS: MAGNESIUM 2.4 mg/dL (1.8-2.4)
[2024-05-09 13:24] LABS: CREATININE 4.7 mg/dL (0.55-1.3); PHOSPHOROUS 4.6 mg/dL (2.5-4.9)
[2024-05-09 13:25] LABS: BILIRUBIN,TOTAL 0.4 mg/dL (0.2-1)
[2024-05-09 13:26] LABS: TOT PROT 6.1 g/dl (6.4-8.2)
[2024-05-09] MEDS: hydrALAZINE HCL 50 MG TABLET (FP) PO SCH (15:57)
[2024-05-09] MEDS ORDERED: SODIUM CHLORIDE 250 ML IV PRN (16:29)
[2024-05-09] MEDS: INSULIN ASPART SLIDING SCALE (NOVOLOG) 1 VIAL SQ SCH (17:21)
[2024-05-10] MEDS: HEPARIN NA (PORCINE) 5,000 UNITS/ML 1ML VIAL SQ SCH (01:57)
[2024-05-10] MEDS: CARVEDILOL 6.25 MG TABLET (FP) PO SCH (01:57)
[2024-05-10] MEDS: MEMANTINE HCL 5 MG TABLET (UD) PO SCH (01:57)
[2024-05-10] MEDS: TICAGRELOR 90 MG TABLET PO SCH (01:57)
[2024-05-10] MEDS: ATORVASTATIN CA 80 MG TABLET (FP) PO SCH (01:57)
[2024-05-10 02:27] VITALS: BMI 33.5
[2024-05-10] MEDS: INSULIN (LEVEMIR) 100 UNITS/ML UNITS SQ SCH (06:38)
[2024-05-10 08:57] LABS: POTASSIUM 3.9 mmol/L (3.5-5.1)
[2024-05-10 08:58] LABS: CALCIUM 8.2 mg/dL (8.5-10.1)
[2024-05-10 09:02] LABS: BASO % 0.6 % (0-2.0); EOS % 6.3 % (0-4.5); HEMATOCRIT 36.9 % (35.4-49); HEMOGLOBIN 12.2 GM/dL (11.7-16.9); LYMPH % 13.7 % (8-40); MCH 28.2 pg (25.7-33.7); MCHC 33.1 g/dl (32.0-35.9); MEAN CELL VOLUME 85.1 fl (80-96); MEAN PLT VOLUME 8.1 fl (7.5-11.1); MONO % 9.9 % (3.8-10.2); NEUT % 69.5 % (42.8-82.8); PLATELET COUNT 164 10^3/uL (134-434); RBC 4.34 M/mm3 (4.00-5.60); RDW 15.5 % (11.9-15.9); WHITE BLOOD COUNT 6.5 K/mm3 (4.0-10.0)
[2024-05-10 09:04] LABS: BLOOD UREA NITROGEN 26.3 mg/dL (7-18)
[2024-05-10] MEDS: DONEPEZIL HCL 10 MG TABLET (FP) PO SCH (09:43)
[2024-05-10] MEDS: ALLOPURINOL 100 MG TABLET (FP) PO SCH (09:44)
[2024-05-10] MEDS: VALSARTAN 160 MG TABLET PO SCH (09:44)
[2024-05-10] MEDS: VITAMIN B COMP W-C 1 EA TABLET (NEPHRO-VITE) PO SCH (09:44)
[2024-05-10] MEDS: TAMSULOSIN HCL 0.4 MG CAP PO SCH (09:44)
[2024-05-10] MEDS: ASPIRIN COATED 81 MG TABLET.EC PO SCH (09:45)
[2024-05-10] MEDS: amLODIPine BESYLATE 10 MG TABLET (FP) PO SCH (09:45)
[2024-05-10] MEDS ORDERED: SODIUM CHLORIDE 250 ML IV PRN (13:38)
[2024-05-10 13:53] VITALS: BP 141/56; PULSE 63; RESP 18; TEMP 97.9
[2024-05-10] MEDS: ISOSORBIDE MONONITRATE 30 MG TAB.SR.24H (FP) PO SCH (15:50)
== END 2024-05-10 18:46 | disposition home or self-care (01) ==
LOC: JER 11:44 → JERBED 14:54 → J4S 22:22
PROVIDERS: ADMIT Internal Medicine; ATTEND Internal Medicine
PROC: 3E023GC Introduction of Other Therapeutic Substance into Muscle, Percutaneous Approach (ICD-10-PCS; principal; 2024-05-09)
PROC: 3E013VG Introduction of Insulin into Subcutaneous Tissue, Percutaneous Approach (ICD-10-PCS; 2024-05-09)
DX: I16.0 Hypertensive urgency (principal); I50.30 Unspecified diastolic (congestive) heart failure; N17.9 Acute kidney failure, unspecified; I73.9 Peripheral vascular disease, unspecified; F03.90 Unspecified dementia, unspecified severity, without behavioral disturbance, psychotic disturbance, mood disturbance, and anxiety; E11.22 Type 2 diabetes mellitus with diabetic chronic kidney disease; I44.2 Atrioventricular block, complete; I12.0 Hypertensive chronic kidney disease with stage 5 chronic kidney disease or end stage renal disease; N18.6 End stage renal disease; Z99.2 Dependence on renal dialysis; Z95.0 Presence of cardiac pacemaker; Z95.5 Presence of coronary angioplasty implant and graft; I11.0 Hypertensive heart disease with heart failure; Z87.891 Personal history of nicotine dependence
CPT/HCPCS: 0241U-QW; 36415; 71046-TC-FY; 80048; 80053; 82550; 82962; 83735; 84100; 84484; 85025; 86704; 86803; 87340; 87517; 93005; 93010; 93880-TC; 96372; 99285-25; G0378; J1644

== ENCOUNTER 2024-08-02 13:03 | Day surgery (SDC) | payer OTHER ==
[2024-08-02 13:50] LABS: ABSOLUTE IMMATURE GRANULOCYTES 0.06 x10^3/uL (0.0-0.031); BASOPHILS # 0.06 x10^3/uL (0.01-0.08); EOSINOPHIL % 4.9 % (0.8-7.0); EOSINOPHILS # 0.38 x10^3/uL (0.04-0.54); HEMATOCRIT 35.6 % (40.1-51.0); HEMOGLOBIN 11.3 g/dL (13.7-17.5); MCHC 31.7 g/dl (32.3-36.5); MEAN CELL VOLUME 89.4 fl (79.0-92.2); MEAN PLT VOLUME 9.7 fl (9.4-12.4); MONOCYTE # 0.89 x10^3/uL (0.30-0.82); MONOCYTE % 11.4 % (5.3-12.2); PLATELET COUNT 225 x10^3/uL (163-337); RDW 15.2 % (12.2-16.6)
[2024-08-02 13:59] LABS: INR 1.13 (0.83-1.09); PROTHROMBIN TIME (PATIENT) 12.4 SEC (9.7-13.0)
[2024-08-02 14:12] LABS: CHLORIDE 102 mmol/L (98-107); POTASSIUM 4.8 mmol/L (3.5-5.1); SODIUM 137 mmol/L (136-145)
[2024-08-02 14:16] LABS: ALBUMIN 3.3 g/dl (3.4-5.0); ANION GAP 10 mmol/L (4-13); BLOOD UREA NITROGEN 45.2 mg/dL (7-18); CALCIUM 9.1 mg/dL (8.5-10.1); CO2 26 mmol/L (21-32); GLUCOSE,RANDOM 95 mg/dL (74-106)
[2024-08-02 14:18] LABS: CREATININE 4.8 mg/dL (0.55-1.3); SGOT/AST 19 U/L (15-37); SGPT/ALT 25 U/L (13-61)
[2024-08-02 14:21] LABS: BILIRUBIN,TOTAL 0.6 mg/dL (0.2-1); TOT PROT 6.5 g/dl (6.4-8.2)
[2024-08-02 14:22] LABS: ALK PHOS 146 U/L (45-117)
[2024-08-02] MEDS ORDERED: HEPARIN NA (PORCINE) 5,000 UNITS/ML 1ML VIAL ONE (14:23)
[2024-08-02] MEDS ORDERED: MIDAZOLAM HCL 2 MG/2 ML SINGLE DOSE VIAL ONE (14:32)
[2024-08-02] MEDS: MIDAZOLAM HCL 2 MG/2 ML SINGLE DOSE VIAL IVPUSH ONE (14:37)
[2024-08-02 15:11] VITALS: TEMP 97.5
[2024-08-02 15:41] VITALS: BP 144/42; PULSE 58; RESP 15
== END 2024-08-02 15:50 | disposition home or self-care (01) ==
LOC: JRADIR 13:03
PROVIDERS: ATTEND Surgery
PROC: 05WY3JZ Revision of Synthetic Substitute in Upper Vein, Percutaneous Approach (ICD-10-PCS; principal; 2024-08-02)
DX: T82.858A Stenosis of other vascular prosthetic devices, implants and grafts, initial encounter (principal); I12.0 Hypertensive chronic kidney disease with stage 5 chronic kidney disease or end stage renal disease; N18.6 End stage renal disease; Z99.2 Dependence on renal dialysis
CPT/HCPCS: 36415; 37248; 75820-TC-FY; 80053; 85025; 85610; C1725; C1769; C1894

== ENCOUNTER 2024-09-05 11:07 | Inpatient (IN) | payer OTHER ==
[2024-09-05 13:03] LABS: VENOUS BASE EXCESS -4.1 mmol/L (-2-2); VENOUS PCO2 34.3 mmHg (38-52); VENOUS PH 7.388 (7.310-7.410)
[2024-09-05 13:09] LABS: INR 1.05 (0.83-1.09); PROTHROMBIN TIME (PATIENT) 11.4 SEC (9.7-13.0)
[2024-09-05 13:12] LABS: ACTIVATED PTT 33.9 SECONDS (25.2-36.5)
[2024-09-05 13:22] LABS: POTASSIUM 4.7 mmol/L (3.5-5.1)
[2024-09-05 13:24] LABS: CALCIUM 9.1 mg/dL (8.5-10.1)
[2024-09-05 13:25] LABS: ALBUMIN 3.4 g/dl (3.4-5.0); BLOOD UREA NITROGEN 59.6 mg/dL (7-18); MAGNESIUM 2.6 mg/dL (1.8-2.4)
[2024-09-05 13:30] LABS: BILIRUBIN,TOTAL 0.5 mg/dL (0.2-1); TOT PROT 6.6 g/dl (6.4-8.2)
[2024-09-05 13:36] LABS: ABSOLUTE IMMATURE GRANULOCYTES 0.05 x10^3/uL (0.0-0.031); BASOPHILS # 0.04 x10^3/uL (0.01-0.08); EOSINOPHIL % 3.4 % (0.8-7.0); EOSINOPHILS # 0.32 x10^3/uL (0.04-0.54); HEMATOCRIT 33.4 % (40.1-51.0); HEMOGLOBIN 10.6 g/dL (13.7-17.5); MCHC 31.7 g/dl (32.3-36.5); MEAN CELL VOLUME 90.3 fl (79.0-92.2); MEAN PLT VOLUME 10.7 fl (9.4-12.4); MONOCYTE # 0.62 x10^3/uL (0.30-0.82); MONOCYTE % 6.7 % (5.3-12.2); PLATELET COUNT 198 x10^3/uL (163-337); RDW 13.8 % (12.2-16.6)
[2024-09-05] MEDS ORDERED: SODIUM CHLORIDE 250 ML IV PRN (17:37)
[2024-09-05 19:50] LABS: HEPATITIS B SURF AG NON-MATERN NON-REACTIVE (NONREACTIVE)
[2024-09-05 20:07] VITALS: BMI 36.3
[2024-09-05 20:18] LABS: HCV DIAGNOSTIC IN-HOUSE W/RFLX NON-REACTIVE (NONREACTIVE)
[2024-09-05] MEDS: CARVEDILOL 6.25 MG TABLET (FP) PO SCH (22:33)
[2024-09-05] MEDS: ATORVASTATIN CA 80 MG TABLET (FP) PO SCH (22:33)
[2024-09-05] MEDS: hydrALAZINE HCL 50 MG TABLET (FP) PO SCH (22:33)
[2024-09-05] MEDS: MEMANTINE HCL 5 MG TABLET (UD) PO SCH (22:34)
[2024-09-05] MEDS: INSULIN ASPART SLIDING SCALE (NOVOLOG) 1 VIAL SQ SCH (22:34)
[2024-09-05] MEDS: HEPARIN NA (PORCINE) 5,000 UNITS/ML 1ML VIAL SQ SCH (22:34)
[2024-09-05] MEDS: TICAGRELOR 90 MG TABLET PO SCH (22:34)
[2024-09-06 07:19] LABS: HEMATOCRIT 32.8 % (40.1-51.0); HEMOGLOBIN 10.3 g/dL (13.7-17.5); MCHC 31.4 g/dl (32.3-36.5); MEAN CELL VOLUME 90.1 fl (79.0-92.2); MEAN PLT VOLUME 10.3 fl (9.4-12.4); PLATELET COUNT 197 x10^3/uL (163-337); RDW 13.8 % (12.2-16.6)
[2024-09-06 07:30] LABS: POTASSIUM 4.1 mmol/L (3.5-5.1)
[2024-09-06 07:35] LABS: CALCIUM 8.3 mg/dL (8.5-10.1)
[2024-09-06 07:36] LABS: ALBUMIN 3.2 g/dl (3.4-5.0); MAGNESIUM 2.1 mg/dL (1.8-2.4)
[2024-09-06 07:39] LABS: PHOSPHOROUS 3.7 mg/dL (2.5-4.9)
[2024-09-06 07:40] LABS: BILIRUBIN,TOTAL 0.7 mg/dL (0.2-1); TOT PROT 6.2 g/dl (6.4-8.2)
[2024-09-06 07:46] LABS: BLOOD UREA NITROGEN 30.4 mg/dL (7-18)
[2024-09-06] MEDS ORDERED: SODIUM CHLORIDE 250 ML IV PRN (10:12)
[2024-09-06] MEDS: HEPARIN NA (PORCINE) 5,000 UNITS/ML 1ML VIAL IVPUSH ONE (10:30)
[2024-09-06] MEDS: TAMSULOSIN HCL 0.4 MG CAP PO SCH (14:15)
[2024-09-06] MEDS: VITAMIN B COMP W-C 1 EA TABLET (NEPHRO-VITE) PO SCH (14:17)
[2024-09-06] MEDS: ALLOPURINOL 100 MG TABLET (FP) PO SCH (14:20)
[2024-09-06] MEDS: VALSARTAN 160 MG TABLET PO SCH (14:20)
[2024-09-06] MEDS: amLODIPine BESYLATE 10 MG TABLET (FP) PO SCH (14:20)
[2024-09-06] MEDS: DONEPEZIL HCL 10 MG TABLET (FP) PO SCH (14:20)
[2024-09-06] MEDS: ISOSORBIDE MONONITRATE 60 MG TAB.SR.24H (FP) PO SCH (14:20)
[2024-09-06] MEDS: ASPIRIN COATED 81 MG TABLET.EC PO SCH (14:21)
[2024-09-06] MEDS: PATIENT'S OWN MEDICATION (NON-FORMULARY) (Insulin Degludec [Tresiba Flextouch U-200] 200 U SQ SCH (15:34)
[2024-09-07 07:03] LABS: ABSOLUTE IMMATURE GRANULOCYTES 0.06 x10^3/uL (0.0-0.031); BASOPHILS # 0.04 x10^3/uL (0.01-0.08); EOSINOPHIL % 4.9 % (0.8-7.0); HEMATOCRIT 31.2 % (40.1-51.0); HEMOGLOBIN 9.8 g/dL (13.7-17.5); MCHC 31.4 g/dl (32.3-36.5); MEAN CELL VOLUME 90.7 fl (79.0-92.2); MEAN PLT VOLUME 10.7 fl (9.4-12.4); MONOCYTE # 0.79 x10^3/uL (0.30-0.82); MONOCYTE % 9.6 % (5.3-12.2); PLATELET COUNT 192 x10^3/uL (163-337); RDW 13.8 % (12.2-16.6)
[2024-09-07 07:13] LABS: CHLORIDE 102 mmol/L (98-107); SODIUM 139 mmol/L (136-145)
[2024-09-07 07:17] LABS: ALBUMIN 3.1 g/dl (3.4-5.0); ANION GAP 7 mmol/L (4-13); CALCIUM 8.5 mg/dL (8.5-10.1); CO2 30 mmol/L (21-32); GLUCOSE,RANDOM 75 mg/dL (74-106); MAGNESIUM 2.2 mg/dL (1.8-2.4)
[2024-09-07 07:19] LABS: BLOOD UREA NITROGEN 35.3 mg/dL (7-18)
[2024-09-07 07:21] LABS: BILIRUBIN,TOTAL 0.6 mg/dL (0.2-1); CREATININE 4.3 mg/dL (0.55-1.3); SGOT/AST 22 U/L (15-37); SGPT/ALT 26 U/L (13-61); TOT PROT 6.1 g/dl (6.4-8.2)
[2024-09-07 07:22] LABS: ALK PHOS 129 U/L (45-117)
[2024-09-07] MEDS: FUROSEMIDE 40 MG TABLET (FP) PO SCH (14:10)
[2024-09-08 06:55] LABS: ABSOLUTE IMMATURE GRANULOCYTES 0.06 x10^3/uL (0.0-0.031); BASOPHILS # 0.05 x10^3/uL (0.01-0.08); EOSINOPHIL % 5.2 % (0.8-7.0); EOSINOPHILS # 0.45 x10^3/uL (0.04-0.54); HEMATOCRIT 30.6 % (40.1-51.0); HEMOGLOBIN 9.9 g/dL (13.7-17.5); MCHC 32.4 g/dl (32.3-36.5); MEAN CELL VOLUME 89.7 fl (79.0-92.2); MONOCYTE # 0.78 x10^3/uL (0.30-0.82); MONOCYTE % 8.9 % (5.3-12.2); PLATELET COUNT 195 x10^3/uL (163-337); RDW 13.4 % (12.2-16.6)
[2024-09-08 07:27] LABS: POTASSIUM 4.6 mmol/L (3.5-5.1)
[2024-09-08 07:39] LABS: BLOOD UREA NITROGEN 57.4 mg/dL (7-18); MAGNESIUM 2.3 mg/dL (1.8-2.4)
[2024-09-08 07:40] LABS: ALBUMIN 3.2 g/dl (3.4-5.0); CREATININE 5.7 mg/dL (0.55-1.3)
[2024-09-08 07:42] LABS: BILIRUBIN,TOTAL 0.6 mg/dL (0.2-1)
[2024-09-08] MEDS ORDERED: SODIUM CHLORIDE 250 ML IV PRN (08:58)
[2024-09-08] MEDS: EPOETIN ALFA-EPBX 4,000 UNIT/ML VIAL IVPUSH ONE (09:32)
[2024-09-08] MEDS ORDERED: REGADENOSON 0.4 MG/5 ML PRE-FILLED SYRINGE IVPUSH ONE (10:19)
[2024-09-08] MEDS: REGADENOSON 0.4 MG/5 ML PRE-FILLED SYRINGE IVPUSH ONE (13:50)
[2024-09-09 07:29] LABS: CALCIUM 8.6 mg/dL (8.5-10.1)
[2024-09-09 07:30] LABS: ALBUMIN 3.2 g/dl (3.4-5.0); BLOOD UREA NITROGEN 46.2 mg/dL (7-18); MAGNESIUM 2.2 mg/dL (1.8-2.4)
[2024-09-09 07:33] LABS: CREATININE 5.1 mg/dL (0.55-1.3)
[2024-09-09 07:35] LABS: BILIRUBIN,TOTAL 0.5 mg/dL (0.2-1); TOT PROT 6.3 g/dl (6.4-8.2)
[2024-09-09 08:13] LABS: ABSOLUTE IMMATURE GRANULOCYTES 0.12 x10^3/uL (0.0-0.031); BASOPHILS # 0.07 x10^3/uL (0.01-0.08); EOSINOPHIL % 3.4 % (0.8-7.0); EOSINOPHILS # 0.31 x10^3/uL (0.04-0.54); HEMATOCRIT 32.1 % (40.1-51.0); HEMOGLOBIN 10.3 g/dL (13.7-17.5); MCHC 32.1 g/dl (32.3-36.5); MEAN CELL VOLUME 90.2 fl (79.0-92.2); MEAN PLT VOLUME 10.9 fl (9.4-12.4); MONOCYTE # 0.88 x10^3/uL (0.30-0.82); MONOCYTE % 9.6 % (5.3-12.2); PLATELET COUNT 196 x10^3/uL (163-337); RDW 13.5 % (12.2-16.6)
[2024-09-09] MEDS ORDERED: SODIUM CHLORIDE 250 ML IV PRN (11:10)
[2024-09-09] MEDS: HEPARIN NA (PORCINE) 5,000 UNITS/ML 1ML VIAL IVPUSH ONE (14:40)
[2024-09-09 14:47] VITALS: TEMP 97.8
[2024-09-09] MEDS: EPOETIN ALFA-EPBX 4,000 UNIT/ML VIAL SQ ONE (15:48)
[2024-09-09 17:01] VITALS: RESP 18
[2024-09-09 17:47] VITALS: BP 129/65; PULSE 53
== END 2024-09-09 20:18 | disposition home or self-care (01) | DRG 280 ==
LOC: JER 11:07 → JERBED 14:31 → J4S 16:51
PROVIDERS: ADMIT Internal Medicine; ATTEND Nurse Practitioner Family
DX: I13.2 Hypertensive heart and chronic kidney disease with heart failure and with stage 5 chronic kidney disease, or end stage renal disease (principal); N18.6 End stage renal disease; I21.4 Non-ST elevation (NSTEMI) myocardial infarction; E11.22 Type 2 diabetes mellitus with diabetic chronic kidney disease; I50.32 Chronic diastolic (congestive) heart failure; I25.10 Atherosclerotic heart disease of native coronary artery without angina pectoris; E11.51 Type 2 diabetes mellitus with diabetic peripheral angiopathy without gangrene; F03.90 Unspecified dementia, unspecified severity, without behavioral disturbance, psychotic disturbance, mood disturbance, and anxiety; N40.0 Benign prostatic hyperplasia without lower urinary tract symptoms; M10.9 Gout, unspecified; Z99.2 Dependence on renal dialysis; Z95.0 Presence of cardiac pacemaker
CPT/HCPCS: 0241U-QW; 36415; 71045-TC-FY; 78452-TC; 80053; 82550; 82553; 82803; 82962; 83036; 83735; 83880; 84100; 84484; 85025; 85027; 85610; 85730; 86704; 86803; 87340; 87517; 93005; 93010; 93017; 93306-TC; 99291; A9502; J1644; J2785; Q5106